=== PATIENT | female | born 1975 ===

== ENCOUNTER 2019-06-04 09:23 | Outpatient (CLI) | payer BC ==
--- NOTE | 2019-06-04 11:17 | Diagnostic Imaging Report ---
ABDOMINAL ULTRASOUND - COMPLETE INDICATION: Abdominal pain. TECHNIQUE: Multiplanar ultrasound examination of the abdomen with greyscale and doppler imaging. COMPARISON: None FINDINGS: Liver: The liver is normal in size and echogenicity. No focal abnormalities are noted. There is a cyst in the left lobe measuring 1.9 x 1.4 x 1.6 cm. Main portal vein is patent. Gallbladder: The gallbladder is normal. No stones are visualized. The wall is not thickened. There is no sonographic Tobin sign. Common bile duct: Normal in size, measuring 4 mm. Pancreas: The visualized portion of pancreas is normal in echogenicity. Kidneys: The kidneys are normal in size and echogenicity. There is no hydronephrosis. Spleen: The spleen is normal in size and echogenicity. Aorta: The aorta is normal in caliber. IMPRESSION: No acute sonographic findings.
--- NOTE | 2019-06-04 20:18 | Diagnostic Imaging Report ---
TRANSABDOMINAL AND TRANSVAGINAL PELVIC ULTRASOUND - COMPLETE INDICATION: Pelvic pain. History of fibroids status post myomectomy in 2013 TECHNIQUE: Transabdominal and endovaginal pelvic ultrasound was performed. FINDINGS: Uterus: Uterus measures 9.5 x 5.3 x 8.3 cm. Endometrium is not thickened, measuring 3 mm and full-thickness. Echotexture is heterogeneous. There are multiple hypoechoic mural and pedunculated fibroids and is hypervascular. The dominant fibroid measures 4.5 x 4.1 x 4.7 cm. Right ovary: Right ovary measures 2 x 1.7 x 1.4 cm. Vascular flow is confirmed with Doppler imaging. No masses are identified. Doppler imaging suggests vascular congestion in the right adnexa. Left ovary: Left ovary measures 2.2 x 2.4 x 2 cm. Vascular flow is confirmed with Doppler imaging. No masses are identified. There is small volume free fluid in the pelvis. IMPRESSION: 1. No evidence of ovarian torsion or mass. 2. Small-volume pelvic free fluid. 3. Suggestion of vascular pelvic congestion. 4. Myomatous uterus with multiple hypervascular fibroids as described above.
== END 2019-06-04 11:23 | disposition home or self-care (01) ==
LOC: ULS 09:23
DX: R10.2 Pelvic and perineal pain (principal); R10.9 Unspecified abdominal pain
CPT/HCPCS: 76700; 76830; 76856